=== PATIENT | female | born 1995 ===

== ENCOUNTER 2017-10-21 14:24 | Emergency (ER) | payer SELFPAY ==
[2017-10-21 14:42] VITALS: BP 105/68; PULSE 75; RESP 16; TEMP 98.1; O2SAT 100
--- NOTE | 2017-10-21 15:44 | ED PDOC ---
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 Patient states for the past 15 days shes had a mildly painful mass on her left lower eyelid. Of note, patient is currently 7 months and is receiving care. She denies contact lens use, trauma, visual changes, vaginal bleeding, or abdominal pain. PMD: Non [facility] Provider Past Medical History Reviewed: Historical Data, Nursing Documentation, Vital Signs Vital Signs: Last Vital Signs Temp 98.1 F 10/21/17 14:39 Pulse 75 10/21/17 14:39 Resp 16 10/21/17 14:39 BP 105/68 10/21/17 14:39 Pulse Ox 100 10/21/17 14:39 - Medical History PMH: No Chronic Diseases - Surgical History Surgical History: No Surg Hx - Family History Family History: States: No Known Family Hx - Allergies Allergies/Adverse Reactions: Allergies Allergy/AdvReac Type Severity Reaction Status Date / Time No Known Allergies Allergy Verified 10/21/17 14:39 Review of Systems ROS Statement: Except As Marked, All Systems Reviewed And Found Negative Eyes: Positive for: Other (painful mass to left eyelid). Negative for: Vision Change Gastrointestinal: Negative for: Abdominal Pain Genitourinary Female: Negative for: Vaginal Bleeding Physical Exam - Reviewed Nursing Documentation Reviewed: Yes Vital Signs Reviewed: Yes - Physical Exam Appears: Positive for: Non-toxic, No Acute Distress Eye Exam: Positive for: EOMI (without pain), PERRL, Other (erythematous cauliflower-like lesion to left lower eyelid medial campus, no bleeding, no discharge, no hyphema bilaterally ) Neurologic/Psych: Positive for: Alert, Oriented (x3) - ECG O2 Sat by Pulse Oximetry: 100 (RA) Pulse Ox Interpretation: Normal Medical Decision Making Medical Decision Makin:30 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 Killian, general neurologist, who states he will see patient tomorrow in his office for biopsy/excision. Patient given strict instructions on necessary follow up tomorrow. Verbalized understanding of necessary follow up with Dr. Killian tomorrow to [place]. Patients info was also given to Dr. Killian. Pictures of eye were sent to Dr. Killian. Scribe Attestation: Documented by Leland Andrew, acting as a scribe for Francisco Donohue PA-C. Provider Scribe Attestation: All medical record entries made by the scribe were at my direction and personally dictated by me. I have reviewed the chart and agree that the record accurately reflects my personal performance of the history, physical exam, medical decision making, and the department course for this patient. I have also personally directed, reviewed, and agree with the discharge instructions and disposition. Disposition - Clinical Impression Clinical Impression: Eye mass - Patient ED Disposition Is Patient to be Admitted: No Counseled Patient/Family Regarding: Diagnosis, Need For Followup - Disposition Referrals: [facility] [Outside] Amanuel Killian MD [Staff Provider] - Disposition: Routine/Home Disposition Time: 15:30 Condition: STABLE Additional Instructions: GO TO DR. AMANUEL KILLIAN TOMORROW FOR REMOVAL OF EYELID MASS WITHOUT FAIL KRISTEN HANNAH, thank you for letting us take care of you today. Your provider was Deangelo Cano MD and you were treated for EYE PAIN. The emergency medical care you received today was directed at your acute symptoms. If you were prescribed any medication, please fill it and take as directed. It may take several days for your symptoms to resolve. Return to the Emergency Department if your symptoms worsen, do not improve, or if you have any other problems. Please contact your doctor or call one of the physicians/clinics you have been referred to that are listed on the Patient Visit Information form that is included in your discharge packet. Bring any paperwork you were given at discharge with you along with any medications you are taking to your follow up visit. Our treatment cannot replace ongoing medical care by a primary care provider outside of the emergency department. Thank you for allowing the [facility] team to be part of your care today. If you had an X-Ray or CT scan: A Radiologist will review the ED reading if any change in treatment is needed we will contact you. If you had a blood, urine, or wound culture: It will take several days for the results, if any change in treatment is needed we will contact you. If you had an STI test: It will take 48 hours for the results. Please call after 1 week if you have not heard back. Forms: [employer] (German) Print Language: FRENCH
== END 2017-10-21 15:37 | disposition home or self-care (01) ==
LOC: H.ER 14:24
DX: Z33.1 Pregnant state, incidental (principal)